=== PATIENT | female | born 1960 | race Caucasian/White ===

== ENCOUNTER 2016-10-02 16:02 | Emergency (ER) | payer OTHER ==
[~2016-10-02 16:02] MED LIST: ALDACTONE 25MG25 MG PO; AMLODIPINE BESY10 MG PO; APIDRA100 UNIT/1; APIDRA100 UNIT/1 SQ; BENADRYL 50MG C50 MG PO; CATAPRES 0.1MG0.1 MG PO; CLOTRIMAZOLE; DIFLUCAN150 MG PO; EMU-LAC HYDRAT120 ML; ENDOCET 2.5-321 EACH PO; EPIPEN 2-P0.3 MG/0.3; FERROUS SULFAT325 M2 PO; FLEXERIL 10 MG10 MG PO; FOLIC ACID 1 MG1 MG PO; IMDUR ER TAB 3030 MG PO; IRON325 MG PO; ISOSORBIDE MONO30 MG PO; K-DUR TAB 10 M10 MEQ PO; LASIX20 MG PO; LOPRESSOR100 MG PO; MIRALAX17 GM PO; MULTIVITAMINS1 EAC1 PO; MYCOSTATIN CREA15 GM TOP; NITROSTAT0.4 MG SL; NYSTATIN100000 UNI TOP; PHENERGAN 12.12.5 M1 PO; PROVENTIL HFA6.7 GM INH; ST. JOSEPH ASPI81 MG PO; TYLENOL W/CODEIN1 E1 PO; VALIUM 5 MG TAB5 MG PO; VITAMIN B-121000 MCG PO; VITAMIN C 500500 MG PO; VITAMIN D50000 UNIT PO
[2016-10-02 21:02] LABS: HEMOGLOBIN 10.4 gm/dl (12.3-15.3); RED BLOOD COUNT 3.81 M/UL (4.00-5.10); WHITE BLOOD COUNT 11.2 K/UL (4.5-11.0)
[2016-10-02 21:37] LABS: BUN/CREATININE RATIO 14 (0-10)
== END 2016-10-03 00:51 | disposition home or self-care (01) ==
LOC: ER1 16:02
PROVIDERS: Family Medicine
DX: J44.9 Chronic obstructive pulmonary disease, unspecified (principal); H54.0 Blindness, both eyes; I25.2 Old myocardial infarction; E11.9 Type 2 diabetes mellitus without complications
CPT/HCPCS: 36415; 36600; 71010; 80053; 81001; 82150; 82550; 82553; 82803; 83690; 83874; 84484; 85025; 93005; 94664; 96360; 96372; 99284; J1100; J2270; J2550

== ENCOUNTER 2016-10-06 09:39 | Observation (INO) | payer OTHER ==
[~2016-10-06] VITALS: Ht 160 cm; Wt 110.7 kg
[2016-10-06 13:16] LABS: HEMOGLOBIN 11.4 gm/dl (12.3-15.3); RED BLOOD COUNT 4.16 M/UL (4.00-5.10); WHITE BLOOD COUNT 15.5 K/UL (4.5-11.0)
[2016-10-06 13:35] LABS: BUN/CREATININE RATIO 24 (0-10)
[2016-10-07] MEDS ORDERED: MYCOSTATIN100000 UTS PO (01:22)
[2016-10-07] MEDS ORDERED: ROXICODONE TAB 55 MG PO (01:23)
[2016-10-07] MEDS ORDERED: APIDRA100 UNIT/1 SC (01:23)
[2016-10-07] MEDS ORDERED: FLEXERIL 10 MG10 MG PO (01:24)
[2016-10-07] MEDS ORDERED: RISPERDAL1 MG PO (01:24)
[2016-10-07 06:42] LABS: HEMOGLOBIN 10.8 gm/dl (12.3-15.3); RED BLOOD COUNT 3.92 M/UL (4.00-5.10)
[2016-10-07 07:04] LABS: BUN/CREATININE RATIO 20 (0-10)
[2016-10-08 08:10] LABS: HEMOGLOBIN 11.5 gm/dl (12.3-15.3); RED BLOOD COUNT 4.23 M/UL (4.00-5.10); WHITE BLOOD COUNT 11.5 K/UL (4.5-11.0)
[2016-10-08 08:11] LABS: BUN/CREATININE RATIO 20 (0-10)
[2016-10-08] MEDS ORDERED: LEVAQUIN750 MG PO (12:12)
== END 2016-10-08 13:46 | disposition home or self-care (01) ==
LOC: ER1 09:39 → ZEROF 14:45 → M/S 14:45
PROVIDERS: Emergency Medicine; Physician Assistant Medical; ADMIT Internal Medicine
DX: J18.9 Pneumonia, unspecified organism (principal); E11.65 Type 2 diabetes mellitus with hyperglycemia; B96.89 Other specified bacterial agents as the cause of diseases classified elsewhere; D72.829 Elevated white blood cell count, unspecified; I25.10 Atherosclerotic heart disease of native coronary artery without angina pectoris; D64.9 Anemia, unspecified; E66.01 Morbid (severe) obesity due to excess calories; R09.02 Hypoxemia; J44.9 Chronic obstructive pulmonary disease, unspecified; I50.32 Chronic diastolic (congestive) heart failure; Z91.19 Patient's noncompliance with other medical treatment and regimen; F60.3 Borderline personality disorder; I48.0 Paroxysmal atrial fibrillation; I27.2 Other secondary pulmonary hypertension; G47.33 Obstructive sleep apnea (adult) (pediatric); G89.4 Chronic pain syndrome; E78.5 Hyperlipidemia, unspecified; K21.9 Gastro-esophageal reflux disease without esophagitis; G62.9 Polyneuropathy, unspecified; Z79.899 Other long term (current) drug therapy; Z79.82 Long term (current) use of aspirin; Z79.891 Long term (current) use of opiate analgesic; Z79.52 Long term (current) use of systemic steroids; Z79.4 Long term (current) use of insulin; Z88.4 Allergy status to anesthetic agent; Z88.5 Allergy status to narcotic agent; Z88.3 Allergy status to other anti-infective agents; Z88.2 Allergy status to sulfonamides; Z88.8 Allergy status to other drugs, medicaments and biological substances; Z87.891 Personal history of nicotine dependence; Z98.61 Coronary angioplasty status; Z68.41 Body mass index [BMI] 40.0-44.9, adult
CPT/HCPCS: 36415; 51702; 70450; 71010; 80048; 80053; 80307; 81001; 82140; 82550; 82553; 82962; 84484; 85025; 85027; 85610; 87040; 87077; 87086; 87186; 93005; 94640; 94664; 96361; 96365; 96372; 96375; 96376; 99291; G0378; G0480; J1650; J1815; J1956; J2310; J2543; J7030; J7040; J7050

== ENCOUNTER 2016-10-13 19:37 | Emergency (ER) | payer OTHER ==
[~2016-10-13 19:37] MED LIST changes: +APIDRA100 UNIT/1 SC; +LEVAQUIN750 MG PO; +MYCOSTATIN100000 UTS PO; +RISPERDAL1 MG PO; +ROXICODONE TAB 55 MG PO
== END 2016-10-13 22:20 | disposition home or self-care (01) ==
LOC: ER1 19:37
DX: S92.501A Displaced unspecified fracture of right lesser toe(s), initial encounter for closed fracture (principal); W22.8XXA Striking against or struck by other objects, initial encounter; Y92.009 Unspecified place in unspecified non-institutional (private) residence as the place of occurrence of the external cause
CPT/HCPCS: 73630; 99283

== ENCOUNTER 2016-10-29 20:55 | Emergency (ER) | payer OTHER | END 2016-10-29 23:36 | disposition home or self-care (01) | LOC: ER1 20:55 | DX: K59.00 Constipation, unspecified (principal) | CPT/HCPCS: 81001; 87086; 93005; 99283 ==

== ENCOUNTER 2016-10-31 18:46 | Observation (INO) | payer OTHER ==
[~2016-10-31] VITALS: Ht 160 cm; Wt 117.9 kg
[2016-11-01 01:01] LABS: HEMOGLOBIN 12.1 gm/dl (12.3-15.3); RED BLOOD COUNT 4.41 M/UL (4.00-5.10); WHITE BLOOD COUNT 7.9 K/UL (4.5-11.0)
[2016-11-01 01:23] LABS: BUN/CREATININE RATIO 18 (0-10)
[2016-11-01] MEDS ORDERED: FOLIC ACID 1 MG1 MG PO (12:14)
[2016-11-01] MEDS ORDERED: VITAMIN C 500500 MG PO (12:15)
[2016-11-01] MEDS ORDERED: PRENATAL VITAM1 EACH PO (12:15)
[2016-11-01] MEDS ORDERED: NYSTATIN1 EAC9 TOP (12:18)
[2016-11-01] MEDS ORDERED: BENADRYL 50MG C50 MG PO (12:20)
[2016-11-01] MEDS ORDERED: MIRALAX PACK 171 PKT PO (12:20)
[2016-11-01] MEDS ORDERED: AMOX TR-K CLV1 EAC4 PO (12:22)
[2016-11-02 07:32] LABS: HEMOGLOBIN 13.3 gm/dl (12.3-15.3)
[2016-11-02 07:33] LABS: RED BLOOD COUNT 4.92 M/UL (4.00-5.10); WHITE BLOOD COUNT 11.1 K/UL (4.5-11.0)
[2016-11-02 07:47] LABS: BUN/CREATININE RATIO 18 (0-10)
[2016-11-03] MEDS ORDERED: XARELTO20 MG PO (12:13)
[2016-11-03] MEDS ORDERED: PRENATE ELITE1 EAC1 PO (12:34)
== END 2016-11-03 14:23 | disposition home or self-care (01) ==
LOC: ER1 18:46 → ZEROF 11-01 04:36 → PROG CARE 11-01 04:36
PROVIDERS: Emergency Medicine; Internal Medicine; ADMIT Family Medicine
DX: R07.89 Other chest pain (principal); I10 Essential (primary) hypertension; E66.01 Morbid (severe) obesity due to excess calories; I48.91 Unspecified atrial fibrillation; E11.65 Type 2 diabetes mellitus with hyperglycemia; J96.11 Chronic respiratory failure with hypoxia; J44.9 Chronic obstructive pulmonary disease, unspecified; I25.10 Atherosclerotic heart disease of native coronary artery without angina pectoris; Z87.891 Personal history of nicotine dependence; Z88.6 Allergy status to analgesic agent; Z88.8 Allergy status to other drugs, medicaments and biological substances; Z79.82 Long term (current) use of aspirin; Z79.891 Long term (current) use of opiate analgesic; Z79.899 Other long term (current) drug therapy; Z90.49 Acquired absence of other specified parts of digestive tract; Z90.89 Acquired absence of other organs; Z91.14 Patient's other noncompliance with medication regimen; Z98.890 Other specified postprocedural states
CPT/HCPCS: ECHO; 36415; 36600; 71010; 80048; 80053; 82009; 82550; 82553; 82803; 82962; 83036; 83605; 83874; 83880; 84484; 85025; 85610; 85730; 93005; 93306; 94640; 94664; 96372; 99285; G0378; J1650; J1940; Q0163

== ENCOUNTER 2016-11-15 18:27 | Observation (INO) | payer OTHER ==
[~2016-11-15 18:27] MED LIST changes: +AMOX TR-K CLV1 EAC4 PO; +MIRALAX PACK 171 PKT PO; +NYSTATIN1 EAC9 TOP; +PRENATAL VITAM1 EACH PO; +PRENATE ELITE1 EAC1 PO; +XARELTO20 MG PO
[2016-11-15 21:44] LABS: HEMOGLOBIN 14.4 gm/dl (12.3-15.3); RED BLOOD COUNT 5.2 M/UL (4.00-5.10); WHITE BLOOD COUNT 8.6 K/UL (4.5-11.0)
[2016-11-16 07:03] LABS: BUN/CREATININE RATIO 30 (0-10)
--- NOTE | 2016-11-16 07:09 | NUR ---
AT 0555 PATIENT HEART RATE IN 130'S-140'S STATED BY TELE. GOT HIGH 180 BPM. VITALS CHECKED. B/P 122/69, O2 99 PERCENT ON 2.5 LITERS NC, HEART RATE 132, BLOOD SUGAR 274. DR LEE NOTIFIED AT 0610. ORDERES RECEIVED TO GIVE AM DOSE OF METOPROLOL 100 MG PO NOW, NITRO SUBLINGUAL 0.4 MG NOW, AND STAT EKG. AT 0621 EKG SHOWED SINUS TACH 108 AND PATIENT STATED CHEST PAIN OF 10/10. B/P CHECKED AGAIN, B/P 88/52 SO NO SUBLINGUAL NITRO GIVEN. DR LEE NOTIFIED AT 0632 AND ORDERS RECEIVED TO BOLUS 250 ML OF NS THEN RUN 250 ML IN AT 75 ML PER HOUR. IF SBP > 100, MAY GIVE 1MG MORPHONE X1 DOSE FOR CHEST PAIN. DR LEE VISITED PATIENT AND COMPLETED HOME MED REC. AT 0635 6 UNITS OF CORRECTION APIDRA GIVEN SQ.
[2016-11-18] MEDS ORDERED: LEVAQUIN500 MG PO (13:08)
[2016-11-18] MEDS ORDERED: IMDUR ER TAB 3030 MG PO (13:09)
== END 2016-11-18 17:30 | disposition home or self-care (01) ==
LOC: ER1 18:27 → MED SURG 4 11-16 02:10
PROVIDERS: Emergency Medicine; ADMIT Internal Medicine
DX: R07.89 Other chest pain (principal); I48.0 Paroxysmal atrial fibrillation; I25.10 Atherosclerotic heart disease of native coronary artery without angina pectoris; E11.65 Type 2 diabetes mellitus with hyperglycemia; I11.0 Hypertensive heart disease with heart failure; I50.30 Unspecified diastolic (congestive) heart failure; J44.9 Chronic obstructive pulmonary disease, unspecified; J96.11 Chronic respiratory failure with hypoxia; E78.5 Hyperlipidemia, unspecified; K21.9 Gastro-esophageal reflux disease without esophagitis; G47.33 Obstructive sleep apnea (adult) (pediatric); E66.01 Morbid (severe) obesity due to excess calories; F60.3 Borderline personality disorder; G47.00 Insomnia, unspecified; G89.4 Chronic pain syndrome; M54.9 Dorsalgia, unspecified; F17.210 Nicotine dependence, cigarettes, uncomplicated; Z68.41 Body mass index [BMI] 40.0-44.9, adult; Z91.19 Patient's noncompliance with other medical treatment and regimen; Z99.81 Dependence on supplemental oxygen; Z79.01 Long term (current) use of anticoagulants; Z79.2 Long term (current) use of antibiotics; Z79.4 Long term (current) use of insulin; Z79.82 Long term (current) use of aspirin; Z79.891 Long term (current) use of opiate analgesic; Z79.899 Other long term (current) drug therapy; Z88.1 Allergy status to other antibiotic agents; Z88.2 Allergy status to sulfonamides; Z88.4 Allergy status to anesthetic agent; Z88.5 Allergy status to narcotic agent; Z88.6 Allergy status to analgesic agent; Z88.8 Allergy status to other drugs, medicaments and biological substances; Z90.49 Acquired absence of other specified parts of digestive tract; Z90.89 Acquired absence of other organs; Z95.5 Presence of coronary angioplasty implant and graft; Z98.890 Other specified postprocedural states
CPT/HCPCS: 36415; 71010; 78452; 80048; 80053; 81001; 82550; 82553; 82962; 83690; 83735; 83880; 84484; 85025; 87086; 93005; 93017; 96372; 96374; 96375; 99285; A9502; G0378; J1815; J1956; J2270; J2405; J2785; Q0163

== ENCOUNTER 2016-11-21 20:54 | Observation (INO) | payer OTHER ==
[~2016-11-21] VITALS: Ht 160 cm; Wt 117.9 kg
[~2016-11-21 20:54] MED LIST changes: +LEVAQUIN500 MG PO
[2016-11-21 22:08] LABS: HEMOGLOBIN 14.1 gm/dl (12.3-15.3); RED BLOOD COUNT 5.08 M/UL (4.00-5.10); WHITE BLOOD COUNT 8.7 K/UL (4.5-11.0)
== END 2016-11-22 16:45 | disposition home or self-care (01) ==
LOC: ER1 20:54 → ZEROF 23:37 → MED SURG 4 23:37 → ZEROF 23:37 → MED SURG 4 11-22 08:00
PROVIDERS: Student in an Organized Health Care Education/Training Program; ADMIT Internal Medicine
DX: R07.89 Other chest pain (principal); I25.10 Atherosclerotic heart disease of native coronary artery without angina pectoris; I48.0 Paroxysmal atrial fibrillation; E78.5 Hyperlipidemia, unspecified; I13.0 Hypertensive heart and chronic kidney disease with heart failure and stage 1 through stage 4 chronic kidney disease, or unspecified chronic kidney disease; E11.22 Type 2 diabetes mellitus with diabetic chronic kidney disease; N18.3 Chronic kidney disease, stage 3 (moderate); I50.9 Heart failure, unspecified; I27.2 Other secondary pulmonary hypertension; E11.65 Type 2 diabetes mellitus with hyperglycemia; K21.9 Gastro-esophageal reflux disease without esophagitis; E66.9 Obesity, unspecified; G47.33 Obstructive sleep apnea (adult) (pediatric); J44.9 Chronic obstructive pulmonary disease, unspecified; G89.4 Chronic pain syndrome; G62.9 Polyneuropathy, unspecified; E11.40 Type 2 diabetes mellitus with diabetic neuropathy, unspecified; N28.9 Disorder of kidney and ureter, unspecified; F17.210 Nicotine dependence, cigarettes, uncomplicated; Z98.61 Coronary angioplasty status; Z99.81 Dependence on supplemental oxygen; Z79.82 Long term (current) use of aspirin; Z79.01 Long term (current) use of anticoagulants; Z79.899 Other long term (current) drug therapy; Z87.01 Personal history of pneumonia (recurrent); Z90.49 Acquired absence of other specified parts of digestive tract; Z90.89 Acquired absence of other organs; Z87.891 Personal history of nicotine dependence; Z86.2 Personal history of diseases of the blood and blood-forming organs and certain disorders involving the immune mechanism; Z68.42 Body mass index [BMI] 45.0-49.9, adult; Z88.8 Allergy status to other drugs, medicaments and biological substances; Z88.2 Allergy status to sulfonamides
CPT/HCPCS: 36415; 71010; 80053; 80061; 82550; 82553; 82962; 83874; 83880; 84484; 85025; 85610; 85730; 93005; 96360; 96372; 99285; G0378; J1650; J1817

== ENCOUNTER 2016-11-25 22:43 | Emergency (ER) | payer OTHER | END 2016-11-26 03:37 | disposition home or self-care (01) | LOC: ER1 22:43 | DX: S09.90XA Unspecified injury of head, initial encounter (principal); S16.1XXA Strain of muscle, fascia and tendon at neck level, initial encounter; S39.012A Strain of muscle, fascia and tendon of lower back, initial encounter; S29.012A Strain of muscle and tendon of back wall of thorax, initial encounter; S30.0XXA Contusion of lower back and pelvis, initial encounter; I48.91 Unspecified atrial fibrillation; I25.2 Old myocardial infarction; I25.10 Atherosclerotic heart disease of native coronary artery without angina pectoris; J44.9 Chronic obstructive pulmonary disease, unspecified; E11.40 Type 2 diabetes mellitus with diabetic neuropathy, unspecified; I11.0 Hypertensive heart disease with heart failure; I50.9 Heart failure, unspecified; Z87.891 Personal history of nicotine dependence; Z99.81 Dependence on supplemental oxygen; W18.09XA Striking against other object with subsequent fall, initial encounter; Y92.009 Unspecified place in unspecified non-institutional (private) residence as the place of occurrence of the external cause; Z88.1 Allergy status to other antibiotic agents; Z88.2 Allergy status to sulfonamides; Z88.5 Allergy status to narcotic agent; Z88.8 Allergy status to other drugs, medicaments and biological substances; Z79.82 Long term (current) use of aspirin; Z79.4 Long term (current) use of insulin; Z79.899 Other long term (current) drug therapy | CPT/HCPCS: 70450; 72125; 72128; 72131; 99284 ==

== ENCOUNTER 2016-11-26 16:00 | Inpatient (IN) | payer OTHER ==
[~2016-11-26] VITALS: Ht 160 cm; Wt 117.9 kg
[2016-11-26 17:24] LABS: HEMOGLOBIN 13.9 gm/dl (12.3-15.3); RED BLOOD COUNT 4.98 M/UL (4.00-5.10); WHITE BLOOD COUNT 8.9 K/UL (4.5-11.0)
[2016-11-26 17:43] LABS: BUN/CREATININE RATIO 21 (0-10)
[2016-11-27 07:06] LABS: HEMOGLOBIN 13.1 gm/dl (12.3-15.3); RED BLOOD COUNT 4.73 M/UL (4.00-5.10); WHITE BLOOD COUNT 7.6 K/UL (4.5-11.0)
[2016-11-29 06:41] LABS: HEMOGLOBIN 12.8 gm/dl (12.3-15.3); RED BLOOD COUNT 4.62 M/UL (4.00-5.10); WHITE BLOOD COUNT 7.1 K/UL (4.5-11.0)
[2016-11-30] MEDS ORDERED: PLAVIX 75 MG TA75 MG PO (13:46)
[2016-11-30] MEDS ORDERED: RANEXA500 MG PO (13:52)
[2016-11-30] MEDS ORDERED: CATAPRES 0.1MG0.1 MG PO (14:49)
[2016-11-30] MEDS ORDERED: ASPIR 8181 MG PO (15:42)
== END 2016-11-30 16:11 | disposition home or self-care (01) | DRG 247 ==
LOC: ER1 16:00 → ZEROF 20:28 → M/S 20:28 → PROG CARE 11-28 17:32 → M/S 11-29 12:00
PROVIDERS: Emergency Medicine; Internal Medicine; ADMIT Internal Medicine
PROC: 027035Z Dilation of Coronary Artery, One Artery with Two Drug-eluting Intraluminal Devices, Percutaneous Approach (ICD-10-PCS; principal; 2016-11-28)
PROC: 4A023N7 Measurement of Cardiac Sampling and Pressure, Left Heart, Percutaneous Approach (ICD-10-PCS; 2016-11-28)
PROC: B2111ZZ Fluoroscopy of Multiple Coronary Arteries using Low Osmolar Contrast (ICD-10-PCS; 2016-11-28)
PROC: B2151ZZ Fluoroscopy of Left Heart using Low Osmolar Contrast (ICD-10-PCS; 2016-11-28)
DX: I25.110 Atherosclerotic heart disease of native coronary artery with unstable angina pectoris (principal); I50.32 Chronic diastolic (congestive) heart failure; J96.11 Chronic respiratory failure with hypoxia; Z68.42 Body mass index [BMI] 45.0-49.9, adult; I11.0 Hypertensive heart disease with heart failure; Z87.891 Personal history of nicotine dependence; I48.0 Paroxysmal atrial fibrillation; Z79.01 Long term (current) use of anticoagulants; J44.9 Chronic obstructive pulmonary disease, unspecified; Z99.81 Dependence on supplemental oxygen; G47.33 Obstructive sleep apnea (adult) (pediatric); E11.42 Type 2 diabetes mellitus with diabetic polyneuropathy; Z79.4 Long term (current) use of insulin; E78.5 Hyperlipidemia, unspecified; I27.2 Other secondary pulmonary hypertension; E66.01 Morbid (severe) obesity due to excess calories
CPT/HCPCS: 36415; 71010; 80048; 80053; 80307; 81001; 82550; 82553; 82962; 83735; 83874; 84484; 85025; 85027; 85347; 93005; 93571; 96374; 96375; 99285; C1725; C1769; C1874; C1887; C1894; C9600; J0153; J0583; J0696; J1644; J2250; J2370; J2405; J3010; J7040; J7050; Q0163; Q9963

== ENCOUNTER 2016-12-01 17:57 | Observation (INO) | payer OTHER ==
[~2016-12-01] VITALS: Ht 162.6 cm; Wt 117.9 kg
[~2016-12-01 17:57] MED LIST changes: +ASPIR 8181 MG PO; +PLAVIX 75 MG TA75 MG PO; +RANEXA500 MG PO
[2016-12-01 22:48] LABS: HEMOGLOBIN 14.6 gm/dl (12.3-15.3); RED BLOOD COUNT 5.22 M/UL (4.00-5.10); WHITE BLOOD COUNT 6.9 K/UL (4.5-11.0)
== END 2016-12-06 18:05 ==
LOC: ER1 17:57 → MED SURG 4 12-02 03:18 → ZEROF 12-02 03:18 → MED SURG 4 12-02 15:05
PROVIDERS: Emergency Medicine; Internal Medicine; ADMIT Family Medicine
DX: I25.10 Atherosclerotic heart disease of native coronary artery without angina pectoris (principal); R53.81 Other malaise; E11.65 Type 2 diabetes mellitus with hyperglycemia; I48.0 Paroxysmal atrial fibrillation; N18.3 Chronic kidney disease, stage 3 (moderate); R09.02 Hypoxemia; E78.5 Hyperlipidemia, unspecified; I27.2 Other secondary pulmonary hypertension; E11.40 Type 2 diabetes mellitus with diabetic neuropathy, unspecified; I50.30 Unspecified diastolic (congestive) heart failure; G47.33 Obstructive sleep apnea (adult) (pediatric); E66.9 Obesity, unspecified; J96.11 Chronic respiratory failure with hypoxia; K21.9 Gastro-esophageal reflux disease without esophagitis; N17.9 Acute kidney failure, unspecified; E66.01 Morbid (severe) obesity due to excess calories; G89.4 Chronic pain syndrome; G47.00 Insomnia, unspecified; Z95.5 Presence of coronary angioplasty implant and graft; Z79.82 Long term (current) use of aspirin; Z79.02 Long term (current) use of antithrombotics/antiplatelets; Z79.01 Long term (current) use of anticoagulants; Z79.891 Long term (current) use of opiate analgesic; Z79.899 Other long term (current) drug therapy; Z87.891 Personal history of nicotine dependence; Z88.8 Allergy status to other drugs, medicaments and biological substances; Z90.89 Acquired absence of other organs; Z68.42 Body mass index [BMI] 45.0-49.9, adult; W01.0XXA Fall on same level from slipping, tripping and stumbling without subsequent striking against object, initial encounter; Y92.009 Unspecified place in unspecified non-institutional (private) residence as the place of occurrence of the external cause; Z90.49 Acquired absence of other specified parts of digestive tract
CPT/HCPCS: 36415; 70450; 71010; 72125; 72131; 73030; 73502; 80048; 80053; 82550; 82553; 82962; 83690; 83874; 84484; 85025; 85610; 85730; 93005; 96372; 96374; 96375; 99285; G0378; J1650; J2270; J2405; J7030; Q0163